=== PATIENT | female | born 1945 | race Caucasian/White ===

== ENCOUNTER 2016-12-27 05:04 | Day surgery (SDC) | payer OTHER ==
[2016-12-20 11:03] VITALS: BMI 34.0
--- NOTE | 2016-12-20 11:45 | PAT Medication Instructions ---
Service Date Dec 20, 2016. Current Home Medication List Aspirin (Aspirin Ec), 81 MG PO QAM Calcium Carbonate-Vitamin D W/ (Caltrate 600 Plus), 1 TAB PO QAM Cholecalciferol (Vitamin D 1000 Unit), 1 TAB PO QAM Furosemide (Lasix), 20 MG PO DAILY PRN for WT GAIN/FLUID Hctz/Lisinopril (Lisinopril/Hctz 10/12.5 Mg), 1 TAB PO QAM Lorazepam (Ativan), 0.5 MG PO TID PRN for Anxiety Meclizine Hcl (Meclizine Hcl), 25 MG PO PT PRN for Dizziness or Vertigo Metformin Hcl (Glucophage), 500 MG PO QAM Multiple Vitamin (Multivitamin), 1 TAB PO QAM [place]-3 Fatty Acids (Fish Oil), 1 CAP PO QAM Potassium Chloride (Micro-K Ext Rel), 20 MEQ PO BID Simvastatin (Zocor), 20 MG PO HS Medication Instructions For Your Scheduled Surgery Meclizine Hcl (Meclizine Hcl), 25 MG PO PT PRN for Dizziness or Vertigo (not taking currently) - Hold the following medications starting today 12/20/16 [place]-3 Fatty Acids (Fish Oil), 1 CAP PO QAM - Hold the following medications 48 hours prior to surgery: Metformin Hcl (Glucophage), 500 MG PO QAM - Hold the following medications the morning of surgery: Potassium Chloride (Micro-K Ext Rel), 20 MEQ PO BID Multiple Vitamin (Multivitamin), 1 TAB PO QAM Hctz/Lisinopril (Lisinopril/Hctz 10/12.5 Mg), 1 TAB PO QAM Furosemide (Lasix), 20 MG PO DAILY PRN for WT GAIN/FLUID Calcium Carbonate-Vitamin D W/ (Caltrate 600 Plus), 1 TAB PO QAM Cholecalciferol (Vitamin D 1000 Unit), 1 TAB PO QAM - Take the following medications the morning of surgery with a sip of water: Lorazepam (Ativan), 0.5 MG PO TID PRN for Anxiety Metoprolol succinate 50 MG Aspirin (Aspirin Ec), 81 MG PO QAM - Take the following medications as scheduled the night before surgery: Potassium Chloride (Micro-K Ext Rel), 20 MEQ PO BID Simvastatin (Zocor), 20 MG PO HS Lorazepam (Ativan), 0.5 MG PO TID PRN for Anxiety If you have any questions please call us at [phone] or [phone] ( [place]) or [phone]
[~2016-12-27] VITALS: Ht 152.4 cm; Wt 79.5 kg
[~2016-12-27 05:04] MED LIST: ASPI81TA28 PO; CALCTAB7 PO; CHOL100027 PO; FURO-85 PO; GLC/500 PO; LORA-741 PO; LSN/10125 PO; MECL1TAB42 PO; METO50TA7 PO; MULTTAB58 PO; OMEG1CAP81 PO; POTA-335 PO; SIMV20TA5 PO
[2016-12-27 05:57] VITALS: BP 169/61; PULSE 79; TEMP 36.4; O2SAT 95; Ht 152.4 cm; Wt 79.5 kg
[2016-12-27] MEDS ORDERED: CEFAZOLIN 2000 MG/60 ML D5W IV SCH (06:00)
[2016-12-27] MEDS ORDERED: LACTATED RINGER'S 1000ML 1,000 ML IV SCH (06:00)
[2016-12-27] MEDS ORDERED: PROPOFOL IV EMULSION 10 MG/ML 20 ML VIAL IV ONE ×2 (06:19→07:32)
[2016-12-27] MEDS ORDERED: ONDANSETRON INJ 2 MG/ML 2 ML VIAL ONE (06:19)
[2016-12-27] MEDS ORDERED: NEOSTIGMINE METHYLSULFATE 5 MG/5 ML SYR ONE (06:19)
[2016-12-27] MEDS ORDERED: SUCCINYLCHOLINE CHLORIDE 20 MG/ML 10 ML VIAL IV ONE (06:19)
[2016-12-27] MEDS ORDERED: GLYCOPYRROLATE INJ 0.2 MG/ML VIAL ONE (06:19)
[2016-12-27] MEDS ORDERED: EpHEDrine SULFATE INJ 50 MG/ML AMP ONE (06:19)
[2016-12-27] MEDS ORDERED: ROCURONIUM BROMIDE 10 MG/ML 5 ML VIAL ONE (06:19)
[2016-12-27] MEDS ORDERED: MIDAZOLAM HCL 1 MG/ML 2ML VIAL ONE (06:19)
[2016-12-27] MEDS ORDERED: DEXAMETHASONE SOD INJ 4 MG/ML VIAL ONE (06:19)
[2016-12-27] MEDS ORDERED: LIDOCAINE HCL 2% 2 ML VIAL (20MG/ML) ONE (06:19)
[2016-12-27] MEDS ORDERED: PHENYLEPHRINE HCL INJ 10 MG/ML VIAL ONE (06:19)
[2016-12-27] MEDS ORDERED: FENTANYL CITRATE INJ 50 MCG/1 ML 2 ML VIAL ONE ×3 (06:19→08:00)
[2016-12-27] MEDS ORDERED: BUPIVACAINE 0.5 % 5 MG/1 ML MPF 30ML VIAL ONE (06:48)
[2016-12-27] MEDS ORDERED: LIDOCAINE HCL 1% 20 ML VIAL ONE (06:48)
--- NOTE | 2016-12-27 07:02 | History & Physical Bridge Note ---
H&P Re-Evaluation Bridge Note: I have examined the patient, reviewed the History & Physical and in the interval since the performance of the History & Physical I have noted the following changes of clinical significance: No changes noted
[2016-12-27] MEDS ORDERED: FENTANYL CITRATE INJ 50 MCG/1 ML 2 ML VIAL IV PRN (07:15)
[2016-12-27] MEDS ORDERED: ONDANSETRON INJ 2 MG/ML 2 ML VIAL IV PRN ×2 (07:15→08:45)
[2016-12-27] MEDS ORDERED: ATROPINE SULFATE 0.1 MG/ML 5ML SYR IV PRN (07:15)
[2016-12-27] MEDS ORDERED: EpHEDrine SULFATE INJ 50 MG/ML AMP IV PRN (07:15)
--- NOTE | 2016-12-27 08:30 | [facility] Post Operative Brief Note ---
Immediate Operative Summary Operative Date Dec 27, 2016. Pre-Operative Diagnosis ventral hernia Post-Operative Diagnosis ventral hernia Procedure(s) Performed Ventral Hernia Repair Surgeon Dr. Onur Scott Cager Operator Surgeon(s) Mona Lawson PA-C Estimated Blood Loss 5ml Findings See dictation Specimens A. OMENTUM AND HERNIA CONTENTS Drains None Anesthesia General Complication(s) None Disposition Recovery Room / PACU
[2016-12-27] MEDS ORDERED: SODIUM CHLORIDE 0.9% 1000ML 1,000 ML IV SCH (08:31)
--- NOTE | 2016-12-27 08:33 | Discharge Instructions ---
Discharge Instructions Admission Reason for Admission: Ventral Hernia Discharge Discharge Diagnosis / Problem: Same Discharge Goals Goal(s): Decrease discomfort Activity Recommendations Activity Limitations: per Instructions/Follow-up section Lifting Limitations: no more than 10 pounds Shower/Bathe: tomorrow . Instructions / Follow-Up Instructions / Follow-Up ACTIVITY RECOMMENDATIONS: * Walk as much as possible. * No heavy lifting (>10 lbs.) for 6 weeks. SPECIAL CARE INSTRUCTIONS: * Ice to hernia repair site on and off until bedtime tonight. * May shower in 24 hours. Let water run over area and pat dry. * Leave steri strips on for one week. * Call the surgeon's office with any questions or concerns - (ex. temperature higher than 101 degrees F, excessive bleeding or pain). MEDICATIONS: Resume previous medications unless instructed otherwise by your surgeon. * Ibuprofen 600 mg every 6 hours with food * Percocet 1 every 4 hours, as needed for pain FOLLOW UP VISIT: If not already scheduled, please call the office to schedule a two week follow- up appointment. Office number Current Hospital Diet Patient's current hospital diet: Discharge Diet Recommended Diet: Diabetes Type 2 Diet Procedures Procedures Performed: Ventral Hernia Repair Pending Studies Studies pending at discharge: no Medical Emergencies . Who to Call and When: Medical Emergencies: If at any time you feel your situation is an emergency, please call 911 immediately. . Non-Emergent Contact Non-Emergency issues call your: Primary Care Provider, Surgeon Call Non-Emergent contact if: your pain is worsening, wound has increased redness, wound has increased pain . "Provider Documentation" section prepared by Onur Scott. VTE Core Measure Inpt VTE Proph given/why not?: Treatment not indicated
[2016-12-27] MEDS ORDERED: OXYCODONE/ACETAMINOPHEN 5-325 TAB PO PRN (08:45)
[2016-12-27] MEDS ORDERED: MoRPHine SULFATE 4 MG/ML 1 ML CARP\\VIAL IV PRN (08:45)
--- NOTE | 2016-12-27 08:52 | Anesthesiology Progress Note ---
Anesthesia Post Op Note Date & Time Dec 27, 2016 at 08:52 Vital Signs Pain Intensity: 0 Vital Signs Past 12 Hours Date Time Temp Pulse Resp B/P Pulse Ox O2 Delivery O2 Flow Rate FiO2 12/27/16 05:57 36.4 79 18 169/61 95 Room Air Notes Mental Status: alert / awake / arousable, participated in evaluation Pt Amnestic to Procedure: Yes Nausea / Vomiting: adequately controlled Pain: adequately controlled Airway Patency, RR, SpO2: stable & adequate BP & HR: stable & adequate Hydration State: stable & adequate Anesthetic Complications: no major complications apparent
--- NOTE | 2016-12-27 08:58 | OPERATIVE REPORT ---
DATE OF OPERATION: 12/27/2016 PREOPERATIVE DIAGNOSIS: Ventral hernia. POSTOPERATIVE DIAGNOSIS: Ventral hernia, umbilical hernia. PROCEDURE: Repair of ventral hernia, umbilical hernia. SURGEON: Dr. Scott. TRICK RODEO RIDER: Ekta Lawson PA-C. FINDINGS: The patient had a 2 cm defect above the umbilicus about 3 cm. It had a hernia sac the size of a large lemon. There was omentum within the hernia sac that could not be reduced due to the small size of the hernia defect. The umbilical defect was palpated from the preperitoneal space during its dissection. It was measured only about 5-6 mm. TECHNIQUE: The patient was given a general anesthetic after the area had been previously marked. The area was prepped and draped in the usual sterile fashion. Transverse incision was made, carried down through the subcutaneous tissue. The hernia sac was easily identified and away from the surrounding tissues down to the fascial defect. There was an old stitch that had to be removed. The hernia sac was opened. I could not reduce the omentum and so I used the clamp-clamp, divide and ligate technique to resect the redundant omentum and I was able to reduce that. I then elevated the fascial edges and created a preperitoneal retrofascial space, and in doing so, I was able to palpate the small umbilical hernia. I freed the anterior abdominal wall and created the space down to below the umbilical hernia site. The dissection was carried for at least 3-4 cm around the entire circumference of the fascial defect. A piece of Surgimesh measuring 10 cm that was round was placed in the preperitoneal space. It was beneath the umbilical defect as well. It was lying flat. It was secured to the undersurface of the fascia using 0 PDS horizontal mattress sutures. The hernia defect was closed with a running #1 PDS and the mesh sutures were secured. The deep tissues were closed with interrupted 2-0 Vicryl. The superficial subcutaneous tissue was closed with running 3-0 Vicryl and the skin was closed with 4-0 Monocryl in a running subcuticular fashion. The skin was anesthetized with 0.5% Marcaine. The skin was cleansed and dried. Benzoin placed. Steri-Strips applied. Estimated blood loss was 5 mL. Sponge, needle and instrument counts were correct prior to closure. The patient tolerated the surgical procedure without complication, was transferred to recovery. I attest to the content of the Intraoperative Record and any orders documented therein. Any exceptio ns are noted below.
--- NOTE | 2016-12-27 09:40 | Anesthesiology Progress Note ---
Anesthesia Post Op Note Date & Time Dec 27, 2016 at 09:39 Vital Signs Pain Intensity: 0 Vital Signs Past 12 Hours Date Time Temp Pulse Resp B/P Pulse Ox O2 Delivery O2 Flow Rate FiO2 12/27/16 09:30 36.3 69 16 156/54 93 Room Air 12/27/16 09:20 75 16 165/67 93 Room Air 12/27/16 09:10 76 16 159/61 100 Mask 10 12/27/16 09:00 74 16 157/80 100 Mask 10 12/27/16 08:52 36.3 75 19 171/113 97 Mask 10 12/27/16 05:57 36.4 79 18 169/61 95 Room Air Notes Mental Status: alert / awake / arousable, participated in evaluation Pt Amnestic to Procedure: Yes Nausea / Vomiting: adequately controlled Pain: adequately controlled Airway Patency, RR, SpO2: stable & adequate BP & HR: stable & adequate Hydration State: stable & adequate Anesthetic Complications: no major complications apparent
[2016-12-27 09:45] VITALS: BP 171/66; PULSE 74; TEMP 36.4; O2SAT 92
[2016-12-27 10:18] VITALS: BP 152/59; PULSE 79; TEMP 36.5; O2SAT 92
[2016-12-27 10:51] VITALS: BP 157/77; PULSE 79; TEMP 36.5; O2SAT 97
== END 2016-12-27 11:00 | disposition home or self-care (01) ==
LOC: C.ACU 05:04
PROVIDERS: ATTEND Surgery
DX: K42.9 Umbilical hernia without obstruction or gangrene (principal); K43.9 Ventral hernia without obstruction or gangrene; E78.5 Hyperlipidemia, unspecified; I10 Essential (primary) hypertension; I73.9 Peripheral vascular disease, unspecified; E11.9 Type 2 diabetes mellitus without complications; Z79.82 Long term (current) use of aspirin